=== PATIENT | female | born 1995 | race American Indian/Alaskan Native ===

== ENCOUNTER 2019-08-26 23:10 | Inpatient (IN) | payer OTHER, MEDICAID ==
--- NOTE | 2019-08-27 00:56 | Ultrasound Report ---
US OB BPP wo non-stress INDICATION / CLINICAL INFORMATION: R/O POSSIBLE SROM. COMPARISON: None available. FINDINGS: breathing movements, movements and posture/tone are visualized. The largest pocket of amniotic fluid measures 1.6 cm. IMPRESSION: 1. Biophysical profile scored 6/8. Signer Name: Víctor Alonso MD Signed: 08/27/2019 12:52 AM Workstation Name: [id number]
--- NOTE | 2019-08-27 00:58 | Ultrasound Report ---
US OB limited INDICATION / CLINICAL INFORMATION: R/O RUPTURE OF MEMBRANES. COMPARISON: None available. FINDINGS: Single viable intrauterine gestation in the cephalic presentation with heart rate 134 bpm. Grade 2 placenta is fundal and free of the os. Amniotic fluid volume is decreased. The LU is 3. IMPRESSION: 1. Decreased amniotic fluid. 2. Bilateral fetus in the cephalic presentation. Signer Name: Víctor Alonso MD Signed: 08/27/2019 12:53 AM Workstation Name: [id number]
[2019-08-27] MEDS ORDERED: PEPCID IV ONE (01:20)
[2019-08-27] MEDS ORDERED: BICITRA PO ONE (01:20)
[2019-08-27] MEDS ORDERED: REGLAN IV ONE (01:20)
[2019-08-27] MEDS ORDERED: LACTATED RINGERS 2,000 ML ONE (01:21)
--- NOTE | 2019-08-27 01:34 | History and Physical Report ---
History of Present Illness Date of examination: 08/27/19 Chief complaint: SROM History of present illness: Past History : 5 Term Births: 1 Premature Births: 0 Living Children: 1 Para: 1 Prev : 1 Prev. attempt? 0 Aborta: 3 Elect. Ab: 1 Spont. Ab: 2 Ectopics: 0 # 1 Delivery date: 07/2011 Weeks Gestation: 12 Delivery type: EAB Comments: D&C # 2 Delivery date: 2013 Weeks Gestation: 12 Delivery type: SAB Comments: expt. mgmt. # 3 Delivery date: 05/2015 Weeks Gestation: 12 Delivery type: SAB Comments: expt. mgmt. # 4 Delivery date: 06/08/2017 Weeks Gestation: 40 Delivery type: Anesthesia type: epidural Delivery location: [place] Inf[place] Sex: Male weight: 6#15 Comments: c/s for distress while pushing Past Medical History: Negative Past Medical History Past Surgical History: c/s Past Medical History Surgery (Non-surveyor helper rod): c/s Abnormal PAP: negative SWAPNIL Exposure: negative Infertility: negative Uterine Anomaly: negative Uterine Surgery (not C/S): negative Other Gynecologic Problems: negative Family Hx: mom-diabetes Social Hx: single. lives with mother and child works at [employer] denies ETOH/tobacco/drugs Infection History Hx of STD: chlamydia HIV Risk Eval: low risk Hepatitis B Risk Eval: low risk Personal hx. of genital herpes: no Partner hx. of genital herpes: no Rash, Viral, or Febrile illness since last LMP? no Varicella/Chicken Pox Status: Previous Disease TB Risk: no Infection History Comments: 2016 chlamydia Genetic History Congenital Heart Defect: Mom: no Dad: no Annie Disease: Mom: no Dad: no Thalassemia Mom: no Dad: no Neural Tube Defect Mom: no Dad: no Down's Syndrome Mom: no Dad: no Harry-Sachs Mom: no Dad: no Sickle Cell Disease/Trait Mom: no Dad: no Hemophilia Mom: no Dad: no Muscular Dystrophy Mom: no Dad: no Cystic Fibrosis Mom: no Dad: no Nelson Chorea Mom: no Dad: no Mental Retardation Mom: no Dad: no Fragile X Mom: no Dad: no Other Genetic/Chromosomal Disorder Mom: no Dad: no Child w/other defect Mom: no Dad: no Enviromental Exposures Enviromental Exposures Reviewed Xray Exposure: no Medication, drug, or alcohol use since LMP: no Chemical/Other Exposure: no Exposure to Cat Liter: no Hx of Parvovirus (Fifth Disease): no Occupational Exposure to Children: none Active Medications (reviewed today): None Current Allergies (reviewed today): No known allergies Past History - Obstetrical History Expected Date of Delivery: 09/13/19 Actual Gestation: 37 Week(s) 4 Day(s) : 5 Medications and Allergies Allergies Allergy/AdvReac Type Severity Reaction Status Date / Time No Known Allergies Allergy Verified 08/27/19 01:24 Active Meds: Active Medications Oxytocin/Sodium Chloride (Pitocin/Ns 20 Unit/1000ml Drip) 20 units in 1,000 mls @ 0 mls/hr IV TITR EDELMIRA Lactated Ringer's (Lactated Ringers) 1,000 mls @ 2,250 mls/hr IV PREOP EDELMIRA Stop: 08/28/19 02:27 Cefazolin Sodium (Ancef/Sterile Water 2 Gm/20 Ml) 2 gm in 20 mls @ 80 mls/hr IV PREOP NR; Protocol Stop: 08/27/19 02:14 Review of Systems All systems: negative Genitourinary: leakage of fluid - Vital Signs Vital signs: Vital Signs Pulse Pulse Ox 79 99 08/26/19 23:38 08/26/19 23:38 Temp Pulse Resp BP Pulse Ox 98.3 F 90 131/76 99 08/26/19 23:40 08/27/19 01:19 08/27/19 01:19 08/27/19 01:18 - Physical Exam Breasts: Positive: deferred Lungs: Positive: Normal air movement Results All other labs normal. Assessment and Plan - Patient Problems (1) 37 weeks gestation of Current Visit: Yes Status: Acute (2) Maternal care due to low transverse uterine scar from previous delivery Current Visit: Yes Status: Acute (3) Oligohydramnios Current Visit: Yes Status: Acute Qualifiers: Fetus number: single or unspecified fetus Trimester: third trimester Qualified Code(s): O41.03X0 - Oligohydramnios, third trimester, not applicable or unspecified Plan to address problem: Probably d/t PROM Will proceed with c/s, questions encouraged and answered, consents reviewed and signed. She voiced understanding and desires to proceed with delivery
--- NOTE | 2019-08-27 01:35 | Anesthesia Consultation ---
Anesthesia Consult and Med Hx Date of service: 08/27/19 - Airway Anesthetic Teeth Evaluation: Good ROM Head & Neck: Adequate Mental/Hyoid Distance: Adequate Mallampati Class: Class II Intubation Access Assessment: Good - Pulmonary Exam CTA: Yes - Cardiac Exam Cardiac Exam: RRR - Pre-Operative Health Status ASA Pre-Surgery Classification: ASA2, Emergency Proposed Anesthetic Plan: Spinal - Pulmonary Hx Asthma: No - Cardiovascular System Hx Hypertension: No - Central Nervous System Hx Seizures: No Hx Psychiatric Problems: No - Endocrine Hx Renal Disease: No Hx Hypothyroidism: No Hx Hyperthyroidism: No - Hematic Hx Anemia: No Hx Sickle Cell Disease: No - Other Systems Hx Alcohol Use: Yes
[2019-08-27] MEDS ORDERED: PHENERGAN PO PRN (01:36)
[2019-08-27] MEDS ORDERED: DILAUDID IV PRN ×2 (01:36)
[2019-08-27] MEDS ORDERED: PHENERGAN PR PRN ×2 (01:36→06:40)
[2019-08-27] MEDS ORDERED: ZOFRAN IV PRN ×2 (01:36→06:40)
[2019-08-27] MEDS ORDERED: NARCAN 0.4 MG/1 ML IV PRN ×2 (01:36→06:40)
--- NOTE | 2019-08-27 01:36 | Anesthesia Day of Surgery ---
Anesthesia Day of Surgery - Day of Surgery Patient Examined: Yes Patient H&P Reviewed: Yes Patient is NPO: No (full meal @ 20:00 08/26/2019)
[2019-08-27] MEDS: LACTATED RINGERS 1,000 ML IV SCH ×2 (01:45→02:19)
[2019-08-27 02:00] LABS: Hematocrit 34.6 % (30.3-42.9); Mean Corpuscular HGB Conc 35 % (30-34); Mean Corpuscular Volume 97 fl (79-97); Platelet Count 405 K/mm3 (140-440); Red Blood Count 3.56 M/mm3 (3.65-5.03); Red Cell Distribution Width 12.7 % (13.2-15.2)
[2019-08-27] MEDS ORDERED: ANCEF/STERILE WATER 2 GM/20 ML 2 GM/20 ML SYRINGE IV NR (02:00)
[2019-08-27] MEDS ORDERED: SODIUM CHLORIDE FLUSH SYRINGE 10 ML IV PRN (02:00)
[2019-08-27] MEDS ORDERED: PITOCin/NS 20 UNIT/1000ML DRIP 20 UNITS/1,000 ML BAG IV SCH ×2 (02:00→06:40)
[2019-08-27] MEDS ORDERED: ZOFRAN ONE (02:14)
[2019-08-27] MEDS ORDERED: DEXMEDETOMIDINE IV ONE (02:14)
[2019-08-27] MEDS ORDERED: PHENYLEPHRINE/NS Syringe 1,000 MCG/10 ML IV ONE (02:48)
[2019-08-27] MEDS ORDERED: BENADRYL ONE (03:04)
[2019-08-27] MEDS ORDERED: TORADOL ONE (03:04)
[2019-08-27] MEDS ORDERED: WATER FOR INJ Sterile (PF) 10 ML ONE (03:11)
[2019-08-27] MEDS ORDERED: DILAUDID ONE (03:27)
--- NOTE | 2019-08-27 03:34 | Post Operative Note ---
Pre-op diagnosis: IUP@37weeks, oligohydramnios Post-op diagnosis: same Procedure: c/s Anesthesia: epidural Surgeon: RONA ARELLANO Estimated blood loss: other Condition: stable Disposition: PACU
[2019-08-27] MEDS ORDERED: LANSINOH TP PRN (06:40)
[2019-08-27] MEDS ORDERED: SODIUM CHLORIDE FLUSH SYRINGE 10 ML IV NR (06:40)
[2019-08-27] MEDS ORDERED: TUCKS PAD TP PRN (06:40)
[2019-08-27] MEDS ORDERED: MYLICON PO PRN (06:40)
[2019-08-27] MEDS ORDERED: TYLENOL PO PRN (06:40)
[2019-08-27] MEDS ORDERED: TYLENOL PR PRN (06:40)
[2019-08-27] MEDS ORDERED: D5LR 1,000 ML IV SCH (09:00)
[2019-08-27] MEDS: TORADOL IV SCH ×3 (09:39→22:15)
[2019-08-27] MEDS: ANCEF/NS 1 GM/50 ML 1 GM/50 ML BAG IV SCH ×2 (09:49→17:39)
--- NOTE | 2019-08-27 15:36 | Post Anesthesia Evaluation ---
- Post Anesthesia Evaluation Patient Participated: Yes Airway Patent: Yes Stable Respiratory Function: Yes Nausea/Vomiting: No Temp > 96.8F: Yes Pain Manageable: Yes Adequeate Hydration: Yes Anesthesia Complications: No Block Receding Appropriately: Yes Patient on Ventilator: No
[2019-08-27 16:45] LABS: Hematocrit 32.2 % (30.3-42.9); Hemoglobin 10.8 gm/dl (10.1-14.3)
--- NOTE | 2019-08-27 23:30 | Operative Report ---
PREOPERATIVE DIAGNOSES: Intrauterine at 37 weeks, oligohydramnios probably due to ruptured membranes, previous , desires repeat . POSTOPERATIVE DIAGNOSES: Intrauterine at 37 weeks, oligohydramnios probably due to ruptured membranes, previous , desires repeat . PROCEDURE: Low transverse section. SURGEON: Odilia Solano MD DESIGN TECHNOLOGY TEACHER: David Cortes CST. ANESTHESIA: Epidural. COMPLICATIONS: None. ESTIMATED BLOOD LOSS: 300 mL. ANESTHESIOLOGIST: Dr. Saladna. OIL RIGGER: ____, UNDERWEAR CUTTER. FINDINGS: Liveborn male , weight 6 pounds 6 ounces, Apgars 8 at 1 minute and 9 at 5 minutes. Grossly normal uterus, tubes and ovaries. DESCRIPTION OF PROCEDURE: After risks, benefits, complications and consequences and alternatives of this procedure were discussed with the patient, she voiced understanding and desired to proceed. She was taken to the OR where epidural anesthesia was placed. She was placed in the left lateral tilt position and prepped and draped in the usual sterile fashion. Timeout was performed. Once an appropriate level of anesthesia was noted, a Pfannenstiel incision was made and extended to the fascia, which was incised and extended in the lateral direction. The overlying fascia was sharply dissected away from the underlying rectus muscles in a superior inferior direction. Midline was entered bluntly. The vesicouterine fold was incised with blunt dissection. Bladder flap was created. The transverse incision was made in the lower uterine segment and was taken to the superolateral direction with finger fractionation. Clear fluid was noted. was delivered from cephalic position with spontaneous cry and excellent tone. Mouth and nose were bulb suctioned. Cord was doubly clamped and cut and the was given to the resuscitation team present. The placenta was manually extracted. The uterus was exteriorized and cleaned for the products of conception and placental tissue. The incision was reapproximated using 0 Vicryl in a running interlocking stitch followed by further suture of 0 Vicryl in an imbricating fashion. Once hemostasis was noted, the uterus was allowed back in the pelvic cavity. The pelvis was irrigated with warm normal saline. Once hemostasis was noted, Tisseel was applied for hemostasis. Once hemostasis was noted, Interceed was placed to decrease adhesions. Once hemostasis was noted, the rectus muscles were approximated using 0 Vicryl in four interrupted simple sutures. Once hemostasis was noted, the fascia was reapproximated using 0 Vicryl in a simple running stitch. Once hemostasis was noted, the skin was reapproximated using 4-0 Vicryl in a subcuticular manner. The patient tolerated the procedure well and was taken to recovery room in stable condition. JOB# [id number] SERGE/SAMIR
[2019-08-28] MEDS: PERCOCET 5/325 PO PRN ×2 (01:00→13:09)
[2019-08-28] MEDS: MILK OF MAGNESIA PO PRN (01:51)
[2019-08-28] MEDS ORDERED: IBUPROFEN PO PRN (03:26)
[2019-08-28] MEDS: TORADOL IV SCH (03:56)
[2019-08-28] MEDS ORDERED: BOOSTRIX IM ONE (06:00)
--- NOTE | 2019-08-28 07:22 | Progress Note ---
Assessment and Plan abdominal binder and MMR ordered - Patient Problems (1) delivery delivered Onset Date: ~08/27/19 Current Visit: Yes Status: Acute Plan to address problem: Pt w/o complaints Breast feeding NB VSS FF below umb Lochia small Incision D&I H&H drop r/t blood loss from surgery Pt is asymptomatic Doing well s/p repeat c/s P: continue pathway Advance diet and activity as tolerated RN to assist pt with breast feeding (2) Rubella non-immune status, antepartum Onset Date: ~08/28/19 Current Visit: Yes Status: Acute Plan to address problem: MMR ordered Subjective - Subjective Date of service: 08/28/19 (no c/o voiced ) Principal diagnosis: Day #1 s/p repeat section Patient reports: appetite normal, voiding normally, pain well controlled, ambulating normally [place]: doing well Objective - Vital Signs Latest vital signs: Vital Signs Temp Pulse Resp BP BP Pulse Ox 08/27/19 23:30 98.2 F 67 20 124/77 99 08/27/19 17:37 97.3 F L 64 18 110/62 08/27/19 12:52 97.6 F 74 18 124/61 08/27/19 07:59 97.4 F L 60 18 111/65 Intake and Output 08/27/19 08/28/19 08/28/19 22:59 06:59 14:59 Intake Total 480 480 Output Total 1350 Balance -870 480 Intake: Oral 480 480 Output: Urine 1350 Indwelling Catheter 350 Void 1000 Other: Total, Intake Amount 480 240 Total, Output Amount 300 # Voids Indwelling Catheter 2 Void 2 1 - Exam Breasts: Present: normal Cardiovascular: Present: Regular rate Lungs: Present: Clear to auscultation Abdomen: Present: normal appearance, soft, normal bowel sounds Uterus: Present: normal Extremities: Present: normal Incision: Present: normal, dry, intact
[2019-08-28] MEDS ORDERED: AFLURIA QUAD 2019-2020 (3YR UP) IM ONE (12:00)
[2019-08-29] MEDS: PERCOCET 5/325 PO PRN ×3 (00:05→16:30)
--- NOTE | 2019-08-29 05:49 | Discharge Summary ---
Providers - Providers Date of Admission: 08/27/19 01:35 Date of discharge: 08/29/19 (pt desires d/c) Attending physician: RONA ARELLANO 08/27/19 06:40 Consult to Can Sealer [CONS] Routine Reason For Exam: Primary care physician: RONA ARELLANO Hospitalization Reason for admission: active labor, IUP at term Delivery: Procedure: repeat low transverse Episiotomy: none Laceration: none Incision: normal, dry, intact Other procedures: none complications: none Discharge diagnosis: IUP at term delivered [place] baby: male Hospital course: uncomplicated repeat section Pt resting Breast feeding w/o issue VSS FF below umb Lochia scant Incision D&I Stable H&H Doing well s/p section P: d/c today with instructions RTO 1 week postop and circ Condition at discharge: Good Disposition: DC-01 TO HOME OR SELFCARE - Discharge Diagnoses (1) delivery delivered Status: Acute Comment: RTO 1 week for postop care (2) Rubella non-immune status, antepartum Status: Acute Comment: MMR given Plan - Discharge Medications Prescriptions: Ibuprofen [Motrin 800 MG tab] 800 mg PO TID PRN #30 tablet PRN Reason: Pain oxyCODONE /ACETAMINOPHEN [Percocet 5/325 mg] 1 - 2 tab PO Q4HR PRN #20 tablet PRN Reason: Pain - Provider Discharge Summary Activity: routine, no sex for 6 weeks, no heavy lifting 4 weeks, no strenuous exercise Diet: routine Instructions: routine Additional instructions: [] Smoking cessation referral if applicable(refer to patient education folder for contact #) [] Refer to [facility] Booklet Call your doctor immediately for: * Fever > 100.5 * Heavy vaginal bleeding ( >1 pad per hour) * Severe persistent headache * Shortness of breath * Reddened, hot, painful area to leg or breast * Drainage or odor from incision. * Keep incision clean and dry at all times and follow doctor's instructions rega rding bathing/showering - Follow up plan Follow up: RONA ARELLANO MD [Primary Care Provider] - 7 Days (Congratulations! Please call [phone] to schedule your postoperative visit and your son's circumcision in 1 week. Bring the EMLA cream with you to his visit. Do NOT use at home. Take medications as prescribed. Call with concerns.)
[2019-08-29] MEDS ORDERED: M-M-R II VACCINE SUB-Q ONE (12:00)
[2019-08-29] MEDS: MILK OF MAGNESIA PO PRN (16:35)
[2019-08-29 18:01] VITALS: BP 121/77
== END 2019-08-29 18:00 | disposition home or self-care (01) | DRG 787 ==
LOC: TRG 23:10 → APU 08-27 01:35 → TRG 08-27 01:35 → OB 08-27 06:36
PROVIDERS: ADMIT Obstetrics & Gynecology; ATTEND Obstetrics & Gynecology
PROC: 10D00Z1 Extraction of Products of Conception, Low, Open Approach (ICD-10-PCS; principal; 2019-08-27)
PROC: 3E0234Z Introduction of Serum, Toxoid and Vaccine into Muscle, Percutaneous Approach (ICD-10-PCS; 2019-08-28)
PROC: 3E0234Z Introduction of Serum, Toxoid and Vaccine into Muscle, Percutaneous Approach (ICD-10-PCS; 2019-08-29)
DX: O34.211 Maternal care for low transverse scar from previous cesarean delivery (principal); O41.03X0 Oligohydramnios, third trimester, not applicable or unspecified; O99.314 Alcohol use complicating childbirth; Z3A.37 37 weeks gestation of pregnancy; Z37.0 Single live birth; Z23 Encounter for immunization
CPT/HCPCS: 36415; 76815; 76819; 85014; 85018; 85027; 86592; 86850; 86900; 86901; 90471; 90686; 90707; 90715; G0378; A6250; J0690; J1170; J1200; J1885; J2370; J2405; J2590; J2765; J3490; J7120; J7121